=== PATIENT | male | born 1990 | race Caucasian/White ===

== ENCOUNTER 2017-02-15 02:13 | Emergency (ER) | payer SELFPAY ==
[~2017-02-15] VITALS: Ht 180.3 cm; Wt 72.6 kg
--- NOTE | 2017-02-15 02:55 | ED GI/GU/ABDOMINAL COMPLAINT ---
History of Present Illness General Chief Complaint: General Adult Stated Complaint: "per pt drinking, dehydrated,vomiting for 3 hrs" Source: patient, old records, friend Exam Limitations: intoxication Vital Signs & Intake/Output Vital Signs & Intake/Output Vital Signs Date Time Temp Pulse Resp B/P B/P Pulse O2 O2 Flow FiO2 Mean Ox Delivery Rate 02/15 0504 97.0 112 20 99/60 100 02/15 0219 96.4 67 18 133/95 100 Room Air Allergies Coded Allergies: No Known Allergies (02/15/17) Reconcile Medications Dextroamphetamine/Amphetamine (Dextroamp-Amphetamin 20 MG Tab) 20 MG TABLET 20 MG PO DAILY ADHD (Reported) Triage Note: PT TO ED WITH FRIENDS. PER PT FRIENDS PT HAS BEEN DRINKING BEER SINCE 1700. PT HAS NOW BEEN VOMITING FOR 3 HOURS. PTS FRIENDS GAVE PT WATER/CRACKERS, PT WAS UNABLE TO KEEP ANYTHING DOWN. Triage Nurses Notes Reviewed? yes Onset: Just prior to arrival Duration: hour(s):, continues in ED Timing: recent history Quality/Severity: aching, moderate, vomiting Location: epigastric Radiation: no radiation Activities at Onset: drinking beer Prior Abdominal Problems: none Past Sexual History: Unobtainable at this time Modifying Factors: Worsens With: eating. Associated Symptoms: fever/chills, loss of appetite, nausea/vomiting HPI: After drinking beer patient developed nausea vomiting altered mental status and chills. There was no chest pain cough shortness of breath headache dysuria rash bleeding fall. Past History Travel History Traveled to [place] past [place] No Medical History Any Pertinent Medical History? none Surgical History Surgical History: non-contributory Family History Hx Contributory? No Review of Systems Review of Systems Constitutional: Reports: see HPI, weakness. EENTM: Reports: no symptoms. Respiratory: Reports: no symptoms. Cardiovascular: Reports: no symptoms. GI: Reports: see HPI, vomiting. Genitourinary: Reports: no symptoms. Musculoskeletal: Reports: no symptoms. Skin: Reports: no symptoms. Neurological/Psychological: Reports: no symptoms. Hematologic/Endocrine: Reports: no symptoms. Immunologic/Allergic: Reports: no symptoms. All Other Systems: Reviewed and Negative Physical Exam Physical Exam General Appearance: well developed/nourished, lethargic, mild distress Head: atraumatic, normal appearance Eyes: Bilateral: normal appearance, PERRL, EOMI, normal inspection. Ears, Nose, Throat, Mouth: hearing grossly normal, moist mucous membrane Neck: normal inspection, supple, full range of motion, normal alignment Respiratory: normal breath sounds, chest non-tender, no respiratory distress, quiet respiration, lungs clear Cardiovascular: regular rate/rhythm, normal peripheral pulses, norml femoral pulses equa Peripheral Pulses: 4+ carotid (R), 4+ carotid (L) Gastrointestinal: normal bowel sounds, soft, non-tender, no organomegaly Male Genitals: normal genitalia Back: normal inspection, normal range of motion Extremities: normal range of motion, no ligament instability Neurologic/Psych: cleaner wall II-XII nml as tested, disoriented x 3, motor weakness Skin: intact, normal color, warm/dry Core Measures ACS in differential dx? No Severe Sepsis Present: No Septic Shock Present: No Progress Differential Diagnosis: pancreatitis Plan of Care: Orders Procedure Date/time Status MAGNESIUM 02/15 0242 Complete LIPASE 02/15 0242 Complete ETHANOL 02/15 0242 Complete COMPREHENSIVE METABOLIC PANEL 02/15 0242 Complete CBC WITHOUT DIFFERENTIAL 02/15 0242 Complete Current Medications Sig/Estefany Start time Last Medication Dose Stop Time Status Admin Sodium Chloride 1,000 ML BOLUS ONE 02/15 0400 UNVr 02/15 (Normal Saline 0.9%) 02/15 0459 0347 Laboratory Tests 02/15/17 0253: Anion Gap 13, Estimated GFR > 60, BUN/Creatinine Ratio 12.2, Glucose 87, Calcium 9.4, Magnesium 2.1, Total Bilirubin 0.3, AST 26, ALT 41, Alkaline Phosphatase 48 , Total Protein 7.4, Albumin 4.7, Globulin 2.7, Albumin/Globulin Ratio 1.7, Lipase 45, CBC w Diff NO MAN DIFF REQ, RBC 4.97, MCV 88.4, MCH 29.1, RDW 12.9, MPV 8.7, Gran % 77.1 H, Lymphocytes % 15.4 L, Monocytes % 4.5, Eosinophils % 2.6, Basophils % 0.4, Absolute Granulocytes 8.7 H, Absolute Lymphocytes 1.7, Absolute Monocytes 0.5, Absolute Eosinophils 0.3, Absolute Basophils 0.1, PUBS MCHC 32.9 L, Serum Alcohol 181.0 Initial ED EKG: none Departure Departure Time of Disposition: 0507 Disposition: HOME OR SELF CARE Condition: Stable Clinical Impression Primary Impression: Alcohol intoxication delirium Secondary Impressions: Nausea and vomiting in adult Additional Instructions: Clear liquids for 12-24 hours in small amounts until better Departure Forms: Customer Survey General Discharge Information Prescriptions: Current Visit Scripts Ondansetron (Zofran Odt) 1 TAB SL TID PRN nausea #10 TAB
[2017-02-15 03:09] LABS: ABSOLUTE BASOPHIL COUNT 0.1 /CUMM (0.0-0.2); ABSOLUTE EOSINOPHIL COUNT 0.3 /CUMM (0.0-0.7); ABSOLUTE GRANULOCYTE CT 8.7 /CUMM (1.4-6.5); ABSOLUTE LYMPH COUNT 1.7 /CUMM (1.2-3.4); ABSOLUTE MONOCYTE COUNT 0.5 /CUMM (0.10-0.60); BASOPHIL % 0.4 % (0.0-2.0); EOSINOPHIL % 2.6 % (0-5); GRANULOCYTE % 77.1 % (42.2-75.2); MEAN CORPUSCULAR HGB 29.1 PG (27.0-31.0); MEAN CORPUSCULAR HGB CONC 32.9 G/DL (33.0-37.0); MEAN CORPUSCULAR VOLUME 88.4 FL (80.0-94.0); MEAN PLATELET VOLUME 8.7 FL (7.4-10.4); PLATELET COUNT 211 /CUMM (130-400); RBC DISTRIBUTION WIDTH 12.9 % (11.5-14.5); RED BLOOD CELL CT 4.97 /CUMM (4.70-6.10); WHITE BLOOD CELL COUNT 11.3 /CUMM (4.8-10.8)
[2017-02-15] MEDS ORDERED: DEXTROAMP-AMPHE20 MG PO (03:36)
[2017-02-15 05:04] VITALS: BP 99/60
[2017-02-15] MEDS ORDERED: ZOFRAN ODT4 M1 SL (05:09)
== END 2017-02-15 05:20 ==
LOC: ERH 02:13
PROVIDERS: Emergency Medicine
DX: F10.121 Alcohol abuse with intoxication delirium (principal); R11.2 Nausea with vomiting, unspecified; R50.9 Fever, unspecified; R41.82 Altered mental status, unspecified
CPT/HCPCS: 96361; 96374; G0480; J2405